=== PATIENT | male | born 2000 | race Caucasian/White ===

== ENCOUNTER 2018-12-21 19:01 | Emergency (ER) | payer MEDICAID, OTHER ==
[~2018-12-21] VITALS: Ht 172.7 cm; Wt 73.3 kg
[2018-12-21 19:28] VITALS: Ht 172.7 cm; Wt 73.3 kg
[2018-12-21 20:50] VITALS: BP 110/64
== END 2018-12-21 20:50 | disposition home or self-care (01) ==
LOC: ED 19:01
DX: S63.602A Unspecified sprain of left thumb, initial encounter (principal); W01.0XXA Fall on same level from slipping, tripping and stumbling without subsequent striking against object, initial encounter; Y93.89 Activity, other specified; Y92.89 Other specified places as the place of occurrence of the external cause; Y99.8 Other external cause status